=== PATIENT | male | born 1960 | race Two or more races ===

== ENCOUNTER 2023-09-20 17:02 | Inpatient (IN) | payer MEDICAID, OTHER ==
[~2023-09-20] VITALS: Ht 170.2 cm; Wt 89.0 kg
[~2023-09-20 17:02] MED LIST: AMLO-258 PO; DOXY-354 PO; FAMO20 PO; LEVO750T68 PO; LISI-894 PO; METF-1211 PO
[2023-09-20 17:42] LABS: COVID AG,FIA SOURCE NASAL SWAB
[2023-09-20 18:13] LABS: SARS-COV2 (COVID) ANTIGEN,FIA Negative (Negative)
[2023-09-20 18:16] LABS: INFLUENZA TYPE A NEGATIVE FOR TYPE A (NEGATIVE); INFLUENZA TYPE B NEGATIVE FOR TYPE B (NEGATIVE)
[2023-09-20 18:50] LABS: BASOPHILS % (AUTO) 0.9 % (0.0-2.0); EOSINOPHILS % (AUTO) 4.7 % (1.0-6.0); HEMATOCRIT 25.6 % (41-53); HEMOGLOBIN 8.7 g/dL (13.5-17.5); LYMPHOCYTES % (AUTO) 17.6 % (22.0-44.0); MEAN CORPUSCULAR HEMOGLOBIN 27.1 pg (26.0-34.0); MEAN CORPUSCULAR VOLUME 80 fL (80-100); MONOCYTES # (AUTO) 0.6 K/uL (0.1-1.0); MONOCYTES % (AUTO) 10.1 % (2.0-9.0); NEUTROPHILS % (AUTO) 66.7 % (40.0-70.0); PLATELET COUNT (AUTO) 216 K/uL (150-450); RED BLOOD CELL COUNT(AUTO) 3.21 MIL/uL (4.50-5.90); RED CELL DISTRIBUTION WIDTH 14.3 % (11.5-14.5); WHITE BLOOD COUNT (AUTO) 5.9 K/uL (4.5-11.0)
[2023-09-20 18:51] LABS: CALCIUM, TOTAL 8.8 mg/dL (8.8-10.5); CREATININE 1.33 mg/dL (0.60-1.30); POTASSIUM 4.4 mmol/L (3.5-5.1)
[2023-09-20 18:57] LABS: ALBUMIN 2.1 g/dL (3.4-5.0); BILIRUBIN,TOTAL 0.4 mg/dL (0.1-1.0); TOTAL PROTEIN, SERUM 7.4 g/dL (6.4-8.2)
[2023-09-20 18:59] LABS: TROPONIN I-HIGH SENSITIVITY 10 ng/L (<76)
[2023-09-20 19:39] LABS: APPEARANCE,URINE CLEAR (CLEAR); BILIRUBIN,URINE NEGATIVE (NEGATIVE); COLOR,URINE LIGHT YELLOW (YELLOW); GLUCOSE, URINE (UA) >=1000 mg/dL (NEGATIVE); KETONES,URINE NEGATIVE (NEGATIVE); LEUKOCYTE ESTERASE ,URINE NEGATIVE (NEGATIVE); NITRATE,URINE NEGATIVE (NEGATIVE); OCCULT BLOOD,URINE TRACE (NEGATIVE); PROTEIN,URINE 100-200,SEE CONFIRM mg/dL (NEGATIVE); SPECIFIC GRAVITIY, URINE 1.022 (1.003-1.030); UROBILINOGEN,URINE <=1.0 mg/dL (<=1.0)
[2023-09-20 19:46] LABS: BACTERIA,URINE Rare /HPF (None Seen); SQUAMOUS EPITHELIAL CELL,UR Rare /LPF (None Seen); SULFOSALICYLIC ACID,URINE 2+ (Negative); WBC,URINE 0-2 /HPF (0-5)
[2023-09-20] MEDS ORDERED: MULT-1366 PO (19:49)
[2023-09-20] MEDS ORDERED: DAPA10TA PO (19:50)
[2023-09-20] MEDS ORDERED: HYDR12.54 PO (19:50)
[2023-09-20] MEDS ORDERED: ATOR20TA65 PO (19:50)
[2023-09-20] MEDS ORDERED: METF-81 PO (19:50)
[2023-09-20] MEDS ORDERED: IOHEXOL 350 MG/ML 100 ML VIAL ONE (20:27)
[2023-09-20] MEDS ORDERED: SODIUM CHLORIDE 0.9% 100 ML ONE (20:27)
[2023-09-20] MEDS: IOHEXOL 9 MG/ML 500 ML BOTTLE PO ONE (20:31)
[2023-09-20] MEDS: ONDANSETRON HCL 4 MG/2 ML VIAL IVP ONE (20:31)
[2023-09-20] MEDS: SODIUM CHLORIDE 0.9% 1,000 ML IV ONE (20:32)
[2023-09-20] MEDS ORDERED: ONDANSETRON HCL 4 MG/2 ML VIAL IVP PRN (22:30)
[2023-09-20] MEDS ORDERED: ACETAMINOPHEN 325 MG TABLET PO PRN (22:30)
[2023-09-20] MEDS ORDERED: DEXTROSE 50%-WATER 25 GM/50 ML SYRINGE IVP PRN (22:45)
[2023-09-20 23:23] LABS: SPECIMENTYPE,BODY FLUID ASCITES
[2023-09-20 23:24] LABS: APPEARANCE,UNSPUN,BODY FLUID HAZY (CLEAR); COLOR,BODY FLUID YELLOW (LT YELLOW); TOTAL VOLUME,BODY FLUID 60 mL
[2023-09-20 23:52] LABS: APPEARANCE,SPUN,BODY FLUID CLEAR (CLEAR); BASOPHILS,BODY FLUID 0 %; EOSINOPHILS,BF (ANAL) 0 %; LYMPHOCYTES,BODY FLUID 70 %; MONOCYTES,BODY FLUID 8 %; NEUTROPHILS,BODY FLUID 14 %; OTHER CELLS,BODY FLUID MESOTHELIALS; WBC, BODY FLUID 300 /cu. mm.
[2023-09-21 00:52] VITALS: BP 148/91; PULSE 109; RESP 19; TEMP 98.2
[2023-09-21] MEDS ORDERED: LOSA-382 PO (01:29)
[2023-09-21 04:34] VITALS: BP 131/78; PULSE 90; RESP 19; TEMP 98.1
[2023-09-21] MEDS: INSULIN LISPRO 100 UNITS/ML SQ PRN (05:58)
[2023-09-21 08:08] VITALS: BP 136/78; PULSE 93; RESP 18; TEMP 97.6
[2023-09-21 08:30] LABS: GLUCOMETER DEV NAME(LOC) 6N.2B; GLUCOSE,POINT OF CARE 149 MG/DL (70-110)
[2023-09-21] MEDS: FAMOTIDINE 20 MG TABLET PO SCH (10:13)
[2023-09-21] MEDS: SPIRONOLACTONE 25 MG TABLET PO SCH (10:13)
[2023-09-21] MEDS: DOCUSATE SODIUM 100 MG CAPSULE PO SCH (10:13)
[2023-09-21] MEDS: ASPIRIN 81 MG CHEWABLE TABLET PO SCH (10:14)
[2023-09-21 12:30] LABS: GLUCOMETER DEV NAME(LOC) 6N.2B; GLUCOSE,POINT OF CARE 214 MG/DL (70-110)
[2023-09-21 16:32] VITALS: BP 143/87; PULSE 91; RESP 18; TEMP 98.4
[2023-09-21 22:00] VITALS: BP 150/81; PULSE 90; RESP 18; TEMP 99.1
[2023-09-22 04:55] VITALS: BP 141/85; PULSE 90; RESP 18; TEMP 98.5
[2023-09-22 08:01] LABS: GLUCOMETER DEV NAME(LOC) 4E.2; GLUCOSE,POINT OF CARE 174 MG/DL (70-110)
[2023-09-22 08:01] LABS: GLUCOMETER DEV NAME(LOC) 4E.2; GLUCOSE,POINT OF CARE 155 MG/DL (70-110)
[2023-09-22 08:01] LABS: GLUCOMETER DEV NAME(LOC) 4E.2; GLUCOSE,POINT OF CARE 146 MG/DL (70-110)
[2023-09-22 08:10] LABS: ALANINE AMINOTRANSFERASE 15 U/L (12-78); ALBUMIN 1.8 g/dL (3.4-5.0); ALKALINE PHOSPHATASE 209 U/L (46-116); ANION GAP 7 mmol/L (8-16); ASPARTATE AMINOTRANSFERASE 22 U/L (15-37); BILIRUBIN,TOTAL 0.4 mg/dL (0.1-1.0); CALCIUM, TOTAL 8.5 mg/dL (8.8-10.5); CARBON DIOXIDE 26 mmol/L (22-29); CHLORIDE 100 mmol/L (98-107); CREATININE 1.06 mg/dL (0.60-1.30); GLOMERULAR FILTR. RATE CALC > 60 mL/min (>60); GLUCOSE,RANDOM 148 mg/dL (70-110); POTASSIUM 4.3 mmol/L (3.5-5.1); SODIUM SERUM 133 mmol/L (136-145); TOTAL PROTEIN, SERUM 6.7 g/dL (6.4-8.2); UREA NITROGEN, BLOOD 18 mg/dL (7-18)
[2023-09-22 09:11] LABS: SPECIMENTYPE,BODY FLUID ASCITES
[2023-09-22] MEDS: ALBUMIN HUMAN 25%-25GM/100ML 100 ML IV ONE (09:29)
[2023-09-22 10:24] LABS: APPEARANCE,SPUN,BODY FLUID CLEAR (CLEAR); APPEARANCE,UNSPUN,BODY FLUID HAZY (CLEAR); COLOR,BODY FLUID YELLOW (LT YELLOW); LYMPHOCYTES,BODY FLUID 18 %; NEUTROPHILS,BODY FLUID 5 %; TOTAL VOLUME,BODY FLUID 1200 mL; WBC, BODY FLUID 272 /cu. mm.
[2023-09-22 10:26] LABS: MONOCYTES,BODY FLUID 71 %; OTHER CELLS,BODY FLUID 6
[2023-09-22] MEDS ORDERED: SPIR50TA27 PO (11:48)
[2023-09-22] MEDS ORDERED: FURO20 PO (11:49)
[2023-09-22 18:06] LABS: GLUCOMETER DEV NAME(LOC) 4E.2; GLUCOSE,POINT OF CARE 135 MG/DL (70-110)
[2023-09-23 07:07] LABS: HEPATITIS C AB (EIA) Non Reactive (Non Reactive)
[2023-09-23] MEDS ORDERED: SPIRONOLACTONE 50 MG TABLET PO SCH (09:00)
[2023-09-23 11:07] LABS: TOTAL PROTEIN,BODY FLUID,REF 2.8 g/dL
== END 2023-09-22 14:45 | disposition home or self-care (01) | DRG 280 ==
LOC: EMS 17:05 → EDH 22:32 → 6S 09-21 00:30 → 4E 09-21 15:30
PROVIDERS: ADMIT Internal Medicine; ATTEND Internal Medicine
PROC: 0W9G3ZZ Drainage of Peritoneal Cavity, Percutaneous Approach (ICD-10-PCS; principal; 2023-09-22)
DX: K70.31 Alcoholic cirrhosis of liver with ascites (principal); E11.40 Type 2 diabetes mellitus with diabetic neuropathy, unspecified; E11.51 Type 2 diabetes mellitus with diabetic peripheral angiopathy without gangrene; Z20.822 Contact with and (suspected) exposure to COVID-19; K80.20 Calculus of gallbladder without cholecystitis without obstruction; K86.1 Other chronic pancreatitis; I10 Essential (primary) hypertension; Z79.4 Long term (current) use of insulin; Z83.3 Family history of diabetes mellitus
CPT/HCPCS: 49083; 71045; 74177; 76942; 80053; 81001; 81002; 82042; 83690; 84157; 84484; 85025; 85610; 86706; 86803; 87804; 89051; 93005; 99285; G0378; J2405; J7030; J7050; P9046; Q9967; 36415-L1; 36415-TC

== ENCOUNTER 2024-02-23 19:19 | Emergency (ER) | payer OTHER ==
[~2024-02-23] VITALS: Ht 170.2 cm; Wt 89.0 kg
[~2024-02-23 19:19] MED LIST changes: -AMLO-258 PO; -DOXY-354 PO; +FURO20TA5 PO; -LEVO750T68 PO; -LISI-894 PO; -METF-1211 PO; +METF-81 PO; +MULT-1366 PO; +SPIR50TA27 PO
[2024-02-23 19:45] LABS: GLUCOMETER DEV NAME(LOC) ERT.6; GLUCOSE,POINT OF CARE 463 MG/DL (70-110)
[2024-02-23] MEDS ORDERED: LACT10SO10 PO (20:08)
[2024-02-23] MEDS ORDERED: FURO40TA6 PO (20:08)
[2024-02-23] MEDS ORDERED: INSU100I26 SQ (20:08)
[2024-02-23] MEDS ORDERED: ATOR20TA65 PO (20:08)
[2024-02-23] MEDS ORDERED: AMLO10TA55 PO (20:08)
[2024-02-23 20:17] LABS: BASOPHILS % (AUTO) 1.1 % (0.0-2.0); EOSINOPHILS % (AUTO) 2.8 % (1.0-6.0); HEMATOCRIT 27.6 % (41-53); HEMOGLOBIN 9.2 g/dL (13.5-17.5); LYMPHOCYTES % (AUTO) 22.7 % (22.0-44.0); MEAN CORPUSCULAR HEMOGLOBIN 28.9 pg (26.0-34.0); MEAN CORPUSCULAR HGB CONC 33.4 G/dL (31.0-37.0); MEAN CORPUSCULAR VOLUME 87 fL (80-100); MONOCYTES # (AUTO) 0.4 K/uL (0.1-1.0); MONOCYTES % (AUTO) 8.5 % (2.0-9.0); NEUTROPHILS # (AUTO) 2.9 K/uL (1.8-7.7); NEUTROPHILS % (AUTO) 64.9 % (40.0-70.0); PLATELET COUNT (AUTO) 198 K/uL (150-450); WHITE BLOOD COUNT (AUTO) 4.4 K/uL (4.5-11.0)
[2024-02-23 20:30] LABS: CALCIUM, TOTAL 8.6 mg/dL (8.8-10.5); CREATININE 1.64 mg/dL (0.60-1.30); POTASSIUM 4.8 mmol/L (3.5-5.1)
[2024-02-23] MEDS: KETOROLAC TROMETHAMINE 30 MG/ML VIAL IVP ONE (20:47)
[2024-02-23] MEDS: INSULIN REGULAR, HUMAN 100 UNITS/ML IVP ONE (20:48)
[2024-02-23 22:00] VITALS: BP 139/68; PULSE 69; RESP 20; TEMP 97.6; O2SAT 98
[2024-02-23 23:26] LABS: GLUCOMETER DEV NAME(LOC) ER.7; GLUCOSE,POINT OF CARE 281 MG/DL (70-110)
== END 2024-02-23 22:46 | disposition home or self-care (01) ==
LOC: EMS 19:19
DX: G44.209 Tension-type headache, unspecified, not intractable (principal); E11.65 Type 2 diabetes mellitus with hyperglycemia; I10 Essential (primary) hypertension; Z79.4 Long term (current) use of insulin; Z79.84 Long term (current) use of oral hypoglycemic drugs; Z79.899 Other long term (current) drug therapy
CPT/HCPCS: 99284; 96374; 96375; 80048; 82962; 85025; 36415; J1815; J1885